=== PATIENT | female | born 1985 | race Caucasian/White ===

== ENCOUNTER 2023-05-22 16:58 | Emergency (ER) | payer MEDICAID ==
[~2023-05-22] VITALS: Ht 165.1 cm; Wt 70.5 kg
[2023-05-22] MEDS ORDERED: KEPPRA750 M1 PO (17:13)
[2023-05-22 18:10] VITALS: BP 121/90
== END 2023-05-22 18:15 | disposition home or self-care (01) ==
LOC: ED 16:58
DX: M77.8 Other enthesopathies, not elsewhere classified (principal)
CPT/HCPCS: J1885